=== PATIENT | male | born 1945 | race Caucasian/White ===

== ENCOUNTER 2017-08-08 09:31 | Emergency (ER) | payer OTHER ==
[~2017-08-08] VITALS: Ht 172.7 cm; Wt 106.1 kg
[2017-08-08] MEDS ORDERED: CARVEDILOL12.5 MG PO (09:44)
[2017-08-08] MEDS ORDERED: LEVEMIR FL100 UNIT/2 SUBQ (09:45)
[2017-08-08] MEDS ORDERED: OMEGA-31000 M1 PO (09:45)
[2017-08-08] MEDS ORDERED: SUPER B COMPLE150 MG PO (09:45)
[2017-08-08] MEDS ORDERED: COQ-10100 MG PO (09:45)
[2017-08-08] MEDS ORDERED: LIPITOR10 MG PO (09:46)
[2017-08-08] MEDS ORDERED: LISINOPRIL10 MG PO (09:46)
[2017-08-08] MEDS ORDERED: TERAZOSIN HCL5 MG PO (09:46)
[2017-08-08] MEDS ORDERED: ELIQUIS5 MG PO (09:46)
[2017-08-08] MEDS ORDERED: FLECAINIDE ACET50 M2 PO (09:47)
[2017-08-08] MEDS ORDERED: ALENDRONATE SODI5 MG PO (09:47)
[2017-08-08] MEDS ORDERED: KLOR-CON 1010 MEQ PO (09:47)
[2017-08-08] MEDS ORDERED: CENTANY30 GM TOP (10:38)
== END 2017-08-08 11:05 | disposition home or self-care (01) ==
LOC: ER 09:31
DX: S61.215A Laceration without foreign body of left ring finger without damage to nail, initial encounter (principal); R07.81 Pleurodynia; W01.0XXA Fall on same level from slipping, tripping and stumbling without subsequent striking against object, initial encounter; Y93.89 Activity, other specified; Y92.89 Other specified places as the place of occurrence of the external cause; Y99.8 Other external cause status